=== PATIENT | female | born 1990 | race Caucasian/White ===

== ENCOUNTER 2020-05-14 08:04 | Inpatient (IN) ==
[2020-05-14] MEDS: LACTATED RINGERS 1,000 ML IV SCH ×3 (08:21→22:47)
[2020-05-14] MEDS ORDERED: CITRIC ACID/SODIUM CITRATE 30 ML UDCUP PO ONE (08:23)
[2020-05-14] MEDS ORDERED: FAMOTIDINE 20 MG/2 ML VIAL IV ONE (08:23)
[2020-05-14] MEDS ORDERED: ceFAZolin 3,000 MG in SYRINGE 1 EACH IV ONE ×2 (08:23→09:00)
[2020-05-14] MEDS ORDERED: OXYTOCIN/LR 20 UNIT/1,000 ML BAG IV ONE ×2 (08:34→09:48)
[2020-05-14] MEDS ORDERED: METHYLERGONOVINE 0.2 MG/1 ML AMP ONE (08:34)
[2020-05-14] MEDS ORDERED: miSOPROStoL 200 MCG TABLET ONE (08:34)
[2020-05-14] MEDS ORDERED: CARBOPROST TROMETHAMINE 250 MCG/ML AMP IM ONE (08:34)
[2020-05-14] MEDS ORDERED: TRANEXAMIC ACID 1,000 MG/10 ML VIAL ONE (08:34)
[2020-05-14 08:39] LABS: Bilirubin,Urine Negative (Negative); Blood, Urine Large mg/dL (Negative); Glucose,Urine (UA) Negative (Negative); Ketones,Urine Negative (Negative); Mucus,Urine Occasional /LPF (Occasional); Nitrite,Urine Negative (Negative); Protein,Urine 30 MG/DL; RBC,Urine 26 /HPF (0-4); Squamous Epithelial Cell,Urine Occasional /HPF (0-10); Urine Appearance CLEAR (Clear); Urine Color Yellow (Yellow); Urine Urobilinogen < 2.0 EU/DL (0.2-1.0); WBC,Urine <1 /HPF (0-6)
[2020-05-14] MEDS ORDERED: MIDAZOLAM 2 MG/2 ML VIAL ONE (08:49)
[2020-05-14] MEDS ORDERED: ONDANSETRON 4 MG/2 ML VIAL ONE ×2 (08:49)
[2020-05-14] MEDS ORDERED: ROCURONIUM 50 MG/5 ML VIAL IV ONE (08:49)
[2020-05-14] MEDS ORDERED: propofoL 200 MG/20 ML VIAL IV ONE (08:49)
[2020-05-14] MEDS ORDERED: DEXAMETHASONE 4 MG/1 ML VIAL ONE (08:49)
[2020-05-14] MEDS ORDERED: SUCCINYLCHOLINE 200 MG/10 ML VIAL ONE (08:49)
[2020-05-14] MEDS ORDERED: fentaNYL 100 MCG/2 ML VIAL ONE (08:49)
[2020-05-14] MEDS ORDERED: SEVOFLURANE 1 UNIT/15 MINUTE INH ONE ×5 (08:49→10:14)
[2020-05-14] MEDS ORDERED: LIDOCAINE 2% 5 ML VIAL ONE (08:49)
[2020-05-14 09:00] LABS: Basophils % 0.2 % (0.0-0.8); Eosinophils # 0.2 10*3/uL (0.0-0.87); Eosinophils % 0.9 % (0.00-10.9); Hematocrit 31.1 VOL% (35.7-47.0); Hemoglobin 9.8 GM/DL (12.0-16.0); Immature Granulocytes % 0.5 %; Immature Granulocytes Absolute 0.09 #; Lymphocytes # 3.1 10*3/uL (1.4-4.0); Lymphocytes % 18.6 % (21.3-54.2); Mean Corpuscular HGB Conc 31.5 GM/DL (32-36); Mean Corpuscular Volume 91.5 FL (87-102); Mean Platelet Volume 11.3 FL (9.6-12.0); Monocytes % 6.2 % (1.7-12.7); Neutrophils % 73.6 % (38.7-73.9); Platelet Count 184 T/CUMM (130-400); Red Cell Distribution Width 12.8 % (9.3-17.3); White Blood Count 16.9 T/CUMM (4-12)
[2020-05-14 09:06] LABS: Barbiturates Screen,Urine Negative (Negative); Benzodiazepines Screen,Urine Negative (Negative); Cannabinoid Screen,Urine Negative (Negative); Opiate Screen,Urine Negative (Negative); Phencyclidine Screen,Urine Negative (Negative)
[2020-05-14] MEDS ORDERED: miSOPROStoL 200 MCG TABLET VAG ONE (09:35)
[2020-05-14] MEDS ORDERED: GLYCOPYRROLATE 0.4 MG/2 ML VIAL ONE ×2 (09:38)
[2020-05-14] MEDS ORDERED: LACTATED RINGERS 1,000 ML IV ONE (09:39)
[2020-05-14] MEDS ORDERED: PHENYLEPHRINE 1 MG/10 ML SYRINGE IV ONE (09:39)
[2020-05-14] MEDS ORDERED: NEOSTIGMINE 10 MG/10 ML VIAL ONE (09:39)
[2020-05-14] MEDS ORDERED: HYDROmorphone 2 MG/1 ML VIAL ONE (09:53)
[2020-05-14 09:59] LABS: Bilirubin,Urine Negative (Negative); Blood, Urine Negative (Negative); Glucose,Urine (UA) Negative (Negative); Ketones,Urine Negative (Negative); Mucus,Urine Occasional /LPF (Occasional); Nitrite,Urine Negative (Negative); Protein,Urine Negative; RBC,Urine 1 /HPF (0-4); Squamous Epithelial Cell,Urine Occasional /HPF (0-10); Urine Appearance CLEAR (Clear); Urine Color Yellow (Yellow); Urine Specific Gravity 1.012 (1.001-1.035); Urine Urobilinogen < 2.0 EU/DL (0.2-1.0); WBC,Urine 1 /HPF (0-6)
[2020-05-14] MEDS ORDERED: HYDROmorphone 2 MG/1 ML VIAL IV PRN (10:22)
[2020-05-14] MEDS ORDERED: ONDANSETRON 4 MG/2 ML VIAL IV PRN (10:22)
[2020-05-14] MEDS ORDERED: hydrOXYzine HCL 25 MG/1 ML VIAL IM PRN (10:22)
[2020-05-14] MEDS ORDERED: diphenhydrAMINE 50 MG/1 ML VIAL IV PRN (10:22)
[2020-05-14] MEDS ORDERED: LORazepam 2 MG/1 ML VIAL IV PRN (10:23)
[2020-05-14] MEDS: ceFAZolin 2,000 MG in PREMIX 1 EACH IV SCH (17:05)
[2020-05-14] MEDS ORDERED: MEPERIDINE 50 MG/1 ML VIAL IV PRN (17:54)
[2020-05-15] MEDS ORDERED: RHO(D) IMMUNE GLOBULIN 300 MCG SYRINGE IM ONE ×2 (01:00→11:38)
[2020-05-15] MEDS: ceFAZolin 2,000 MG in PREMIX 1 EACH IV SCH (01:11)
[2020-05-15] MEDS ORDERED: oxyCODONE/ACETAMINOPHEN 5-325 MG TABLET PO PRN (03:29)
[2020-05-15] MEDS: oxyCODONE/ACETAMINOPHEN 5-325 MG TABLET PO PRN ×4 (03:39→23:48)
[2020-05-15 07:19] LABS: Basophils % 0.1 % (0.0-0.8); Eosinophils % 0.2 % (0.00-10.9); Hematocrit 26.5 VOL% (35.7-47.0); Hemoglobin 8.7 GM/DL (12.0-16.0); Immature Granulocytes % 0.6 %; Lymphocytes # 3.5 10*3/uL (1.4-4.0); Lymphocytes % 21.4 % (21.3-54.2); Mean Corpuscular HGB Conc 32.8 GM/DL (32-36); Mean Corpuscular Volume 88.6 FL (87-102); Mean Platelet Volume 11.4 FL (9.6-12.0); Monocytes % 6.3 % (1.7-12.7); Neutrophils % 71.4 % (38.7-73.9); Platelet Count 178 T/CUMM (130-400); Red Blood Count 2.99 MC/CUMM (3.8-5.5); Red Cell Distribution Width 12.9 % (9.3-17.3); White Blood Count 16.6 T/CUMM (4-12)
[2020-05-15] MEDS ORDERED: SIMETHICONE CHEW 80 MG TABLET PO PRN (08:37)
[2020-05-15] MEDS: MAGNESIUM HYDROXIDE SUSP 30 ML UDCUP PO PRN ×2 (09:12→21:15)
[2020-05-15] MEDS: DOCUSATE SODIUM 100 MG CAPSULE PO PRN (09:12)
[2020-05-15] MEDS ORDERED: ONDANSETRON 4 MG TABLET PO PRN (14:22)
[2020-05-15] MEDS: FERROUS SULFATE 325 MG TABLET PO SCH (21:05)
[2020-05-16 07:28] VITALS: BP 141/80
[2020-05-16] MEDS: MAGNESIUM HYDROXIDE SUSP 30 ML UDCUP PO PRN (08:36)
[2020-05-16] MEDS: DOCUSATE SODIUM 100 MG CAPSULE PO PRN (08:38)
[2020-05-16] MEDS: FERROUS SULFATE 325 MG TABLET PO SCH (08:38)
== END 2020-05-16 12:40 | disposition home or self-care (01) | DRG 540 ==
LOC: N.LDOUT 08:04 → N.LD 08:06 → N.OB 12:35
PROVIDERS: ADMIT Specialist; ATTEND Specialist
PROC: LDCSECT (ICD-10-PCS; 2020-05-14 08:30)